=== PATIENT | female | born 1980 | race Caucasian/White ===

== ENCOUNTER → 2019-08-28 | Outpatient (CLI) | payer BC, SELFPAY ==
--- NOTE | 2019-08-28 12:56 | RAD_ITS ---
STUDY: X-RAY CHEST REASON FOR EXAM: Female, 39 years old. COUGH X SEVERAL DAYS, NO COMPLAINT OF SOB/FEVER TECHNIQUE: PA and lateral views of the chest. COMPARISON: None. FINDINGS: The lungs are slightly underexpanded with mild nonspecific interstitial prominence, otherwise clear. There is no demonstrated pleural abnormality. Normal size heart. Normal mediastinum and kris. Normal visualized pulmonary arteries. Normal visualized aortic arch and descending thoracic aorta. Normal visualized thoracic spine. Normal visualized ribs, clavicles, and shoulders. There is no demonstrated abnormality of the visualized soft tissue structures of the upper abdomen. RAD/Chest PA and Lateral IMPRESSION: Mild nonspecific interstitial prominence possibly due to decreased inspiration. Otherwise normal x-ray examination of the chest. Electronically Signed: Afshan Dudley MD at 0:16 EDT , Service support ,
--- NOTE | 2019-08-28 12:57 | EKG12_ITS ---
Test Reason : CP Blood Pressure : / mmHG Vent. Rate : 085 BPM Atrial Rate : 085 BPM P-R Int : 154 ms QRS Dur : 080 ms QT Int : 386 ms P-R-T Axes : 053 005 042 degrees QTc Int : 459 ms Normal sinus rhythm Normal ECG Confirmed by JACEK DURAN, MARIAN ([id number]), tape editor TEENA PAYNE ([id number] on 08/31/2019 10:28:08 AM Referred By: Ronen Daniel Confirmed By:MARIAN READ MD
[2019-08-28 13:18] LABS: CRP 8.09 mg/L (0.0-3.0); Ferritin 142 ng/mL (8-252); LDH 164 U/L (84-246)
[2019-08-28 13:25] LABS: D-Dimer Quantitative (DVT/PE) 0.48 FEU/ug/m (0.27-0.49)
== END | disposition home or self-care (01) ==
PROVIDERS: PCP Nurse Practitioner Family; Referring Provider Nurse Practitioner Family; Visit Provider Nurse Practitioner Family
DX: R05 Cough (principal); R09.89 Other specified symptoms and signs involving the circulatory and respiratory systems; R07.9 Chest pain, unspecified; R94.5 Abnormal results of liver function studies
CPT/HCPCS: 36415; 71046; 82728; 83615; 85379; 86140; 87635; 87804; 93005; 94799; G2023; U0004